=== PATIENT | male | born 1985 | race Caucasian/White ===

== ENCOUNTER 2017-12-03 18:15 | Emergency (ER) | payer OTHER | END 2017-12-03 19:51 | disposition home or self-care (01) | LOC: E/R 19:51 | DX: L50.9 Urticaria, unspecified (principal) | CPT/HCPCS: 99283; Z7502 ==

== ENCOUNTER 2017-12-06 08:37 | Emergency (ER) | payer OTHER ==
[2017-12-06] MEDS: DEXAMETHASONE 10 MG/ML 1 ML INJ IM (09:32)
== END 2017-12-06 10:03 | disposition home or self-care (01) ==
LOC: FTE 08:37
DX: L50.9 Urticaria, unspecified (principal)
CPT/HCPCS: 96372; 99284-25; J1100